=== PATIENT | male | born 1960 | race Caucasian/White ===

== ENCOUNTER 2018-04-23 13:22 | Emergency (ER) | payer BC ==
[2018-04-23 14:03] VITALS: BP 134/83
--- NOTE | 2018-04-23 14:25 | UC ---
General HPI - HPI Summary HPI Summary: Pt presents to without current symptoms. Pt states this morning was at work. 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 Pt states had sudden onset of dizziness and fell to his knees. Did not strike head. No LOC. no cp, sob, abd pain. Pt states sx lasted approx 90 minutes until able to ambulate independently. Pt states he was able to drive home. PT states sx have completely resolved. Pt denies fever, chills, rash. No thakkar, vision changes. Pt states he has had increased SOB with activities. Pt states he smoke 2+ PPD cigarettes. Pt states he has had sinus congestion and has been taking pseudophed with little improvement. No fevers chills No h.o CAD, CVA pt's medications reviewed this visit - History of Current Complaint Chief Complaint: UCDizziness Stated Complaint: DIZZINESS Time Seen by Provider: 04/23/18 14:06 Hx Obtained From: Patient, Medical Records Onset/Duration: Sudden Onset, Lasting Hours Onset Severity: Severe Current Severity: Mild Pain Intensity: 2 - Allergy/Home Medications Allergies/Adverse Reactions: Allergies Allergy/AdvReac Type Severity Reaction Status Date / Time No Known Allergies Allergy Verified 04/23/18 14:03 Home Medications: Home Medications Omeprazole CAP* [Prilosec CAP* 20 MG] 40 mg DAILY 04/23/18 [History Confirmed ] PMH/Surg Hx/FS Hx/Imm Hx Previously Healthy: Yes - Surgical History Surgical History: Yes Surgery Procedure, Year, and Place: gallbladder - Social History Alcohol Use: None Substance Use Type: None Smoking Status (MU): Heavy Every Day Tobacco Smoker Type: Cigarettes Amount Used/How Often: 2 PPD Length of Time of Smoking/Using Tobacco: since 13 y/o Household Exposure Type: Cigarettes Review of Systems All Other Systems Reviewed And Are Negative: Yes ENT: Positive: Sinus Congestion Neurological: Positive: Other - dizziness Physical Exam - Summary Physical Exam Summary: Vital Signs Reviewed: Yes A+Ox3, no distress Eyes: Conjunctiva Clear, [id number]. EOM intact and full, no nystagmus ENT: Hearing grossly normal TM x 2 clear, mild bogginess, + mild PND, mmoist, uvula midline, no exudate, no erythema Neck: Positive: Supple Respiratory: Positive: No respiratory distress, No accessory muscle use + CTA throughout no w/r Cardiovascular: RRR nl s1, s2 no m/r CBT <2 sec, no bruits b/l abd soft + BS nt/nd no guarding, no distension Musculoskeletal Exam: [place] x 4 without difficulty Strength Intact, ROM Intact Neurological: Positive: Alert, + sensation throughout no difficulty with ambulation, no nystagmus Psychological: Positive: Normal Response To Family Skin: Positive: no rash, no ecchymosis Triage Information Reviewed: Yes Vital Signs: Initial Vital Signs Temp 97.9 F 04/23/18 13:56 Pulse 82 04/23/18 13:56 Resp 16 04/23/18 13:56 BP 134/83 04/23/18 13:56 Pulse Ox 99 04/23/18 13:56 Diagnostics - EKG Cardiac Rate: NL - 70 bpm no inferior Q wave from 2008 Cardiac Rhythm: Sinus: Normal Course/Dx - Course Course Of Treatment: Pt presents to . This am pt extended neck and sudden onset of severe dizziness - dropped to knees. Pt states need assistance x 90minute PT states sx completely resolved. No h./o similar. pt does have sinus congeston and has been using pseudeoephederine. EKG reviewed - new inferior Q wave from 2008. recommend pt to ED for posterior ciculation evaluation. pt unsure if will go - waiting for call from . I had long discussion with pt regarding differential. Pt agrees to go - would like [facility]. Will d/c with recommendation. spoke with Farzad Dominguez - [facility] aware of patient - Diagnoses Provider Diagnosis: Dizziness after extension of neck Discharge - Sign-Out/Discharge Documenting (check all that apply): Patient Departure All imaging exams completed and their final reports reviewed: No Studies - Discharge Plan Condition: Stable Disposition: HOME-RECOMMEND TO ED Referrals: No Primary Care Phys,NOPCP [Medical Doctor] - Additional Instructions: The doctor that evaluated you today thinks that you need additional testing that can be completed the emergency department. It is recommended that you go directly to emergency department for further evaluation. This evaluation may include blood work or imaging. This testing will be directed and decided by the provider that evaluate you at the emergency department. If pain becomes worse, you feel lightheaded, you have uncontrolled vomiting, or you have any other concerns while you are being driven to emergency department as recommended to pullover and contact 911. - Billing Disposition and Condition Condition: STABLE Disposition: Home-Recommend to ED
== END 2018-04-23 14:39 | disposition home health service (06) ==
LOC: UCCORT 13:22
DX: R42 Dizziness and giddiness (principal); F17.210 Nicotine dependence, cigarettes, uncomplicated
CPT/HCPCS: 93005; 99202; G0463